=== PATIENT | female | born 1950 | race Caucasian/White ===

== ENCOUNTER 2020-01-30 15:32 | Inpatient (IN) ==
[2020-01-30] MEDS ORDERED: Ondansetron 4 MG/2 ML VIAL IVP PRN (19:32)
[2020-01-30] MEDS ORDERED: Naloxone 0.4 MG/ML INJ IVP PRN (19:32)
[2020-01-30 20:35] LABS: Alanine Aminotransferase 27 Units/L (7-52); Albumin 4.1 g/dL (3.5-5.7); Albumin/Globulin Ratio 1.6 (1.1-2.2); Alkaline Phosphatase 42 Units/L (34-104); Aspartate Amino Transferase 22 Units/L (13-39); BUN/Creatinine Ratio 20 (6-26); Bilirubin,Total 0.5 mg/dL (0.3-1.0); Blood Urea Nitrogen 16 mg/dL (8-23); Calcium 9.5 mg/dL (8.6-10.3); Carbon Dioxide 26 mEq/L (23-29); Chloride 103 mEq/L (98-107); Globulin 2.5 g/dL (2.4-3.5); Glucose 101 mg/dL (70-105); Osmolality,Calculated 287 (280-300); Potassium 4.1 mEq/L (3.5-5.1); Sodium 138 mEq/L (136-145); Total Protein 6.6 g/dL (6.4-8.9); Troponin I < 0.03 ng/mL (< 0.04); eGFR For African Americans > 60 (> 60); eGFR For Non-African Americans > 60 (> 60)
[2020-01-30] MEDS ORDERED: Perflutren Lipid Microsphere 1.3 ML in 0.9 % Sodium Chloride 8.7 ML IVP PRN (20:40)
[2020-01-30] MEDS: Gabapentin 300 MG CAPSULE PO SCH (21:53)
[2020-01-30] MEDS: Acetaminophen 325 MG TABLET PO PRN (21:54)
[2020-01-30] MEDS: Furosemide 20 MG/2 ML VIAL IVP SCH (21:55)
[2020-01-31 02:01] LABS: Basophils # 0.1 K/mcL (0.0-0.2); Eosinophils # 0.2 K/mcL (0.0-0.6); Eosinophils % 2.8 %; Hematocrit 41.7 % (35.3-44.9); Hemoglobin 13.7 g/dL (11.5-15.4); Immature Granulocytes % 0.3 % (0-4); Lymphocytes # 3.5 K/mcL (0.6-4.6); Lymphocytes % 40.6 %; Mean Corpuscular HGB Conc 32.9 g/dL (31.6-35.5); Mean Corpuscular Hemoglobin 31.9 pg (28.0-33.3); Mean Corpuscular Volume 97.2 fL (83.0-100.0); Mean Platelet Volume 10.1 fL (9.4-12.4); Monocytes # 0.6 K/mcL (0.0-1.3); Monocytes % 7.1 %; Neutrophils # 4.2 K/mcL (1.6-8.9); Platelet Count 264 K/mcL (140-400); Red Blood Count 4.29 M/mcL (3.82-4.97); Red Cell Distribution Width 13.1 % (11.5-14.5); Segmented Neutrophils % 48.2 %; White Blood Count 8.7 K/mcL (4.3-11.1)
[2020-01-31 02:04] LABS: INR 1.3; Prothrombin Time 14.8 Seconds (9.4-12.1)
[2020-01-31 02:20] LABS: BUN/Creatinine Ratio 21 (6-26); Blood Urea Nitrogen 18 mg/dL (8-23); Calcium 9.8 mg/dL (8.6-10.3); Carbon Dioxide 26 mEq/L (23-29); Chloride 103 mEq/L (98-107); Chol/HDL Ratio 3.3 (0-4.9); Cholesterol 112 mg/dL (< 200); Glucose 101 mg/dL (70-105); HDL Cholesterol 34 mg/dL (40-59); LDL Cholesterol,Calculated 53 mg/dL (< 100); Magnesium 1.9 mg/dL (1.6-2.6); Osmolality,Calculated 288 (280-300); Phosphorous 4.6 mg/dL (2.7-4.5); Potassium 4.4 mEq/L (3.5-5.1); Sodium 138 mEq/L (136-145); Triglycerides 124 mg/dL (< 150); eGFR For African Americans > 60 (> 60); eGFR For Non-African Americans > 60 (> 60)
[2020-01-31] MEDS ORDERED: FLUTICASONE PROPIONATE IH SCH (09:00)
[2020-01-31] MEDS: Gabapentin 300 MG CAPSULE PO SCH ×3 (09:35→21:16)
[2020-01-31] MEDS: Furosemide 20 MG/2 ML VIAL IVP SCH (09:36)
[2020-01-31] MEDS ORDERED: Perflutren Lipid Microsphere 1.3 ML in 0.9 % Sodium Chloride 8.7 ML IVP PRN (10:03)
[2020-01-31] MEDS: Nicotine 14 MG PATCH.TD24 TD SCH (10:42)
[2020-01-31] MEDS: Aspirin Enteric Coated 81 MG Tablet PO SCH (10:42)
[2020-01-31] MEDS: Metoprolol XL (24 HR) Succ 25 MG TAB.ER.24H PO SCH ×2 (13:28→21:16)
[2020-01-31] MEDS ORDERED: Heparin 1,000 UNITS/500 mL 500 ML ONE (13:30)
[2020-01-31] MEDS ORDERED: ISOVUE-370 200 ML INFUS..BTL ONE (13:30)
[2020-01-31] MEDS ORDERED: 0.9 % Sodium Chloride 2,000 ML ONE (13:30)
[2020-01-31] MEDS ORDERED: Nitroglycerin 1,000 MCG/10 ML VIAL IV ONE (13:30)
[2020-01-31] MEDS ORDERED: *HR* Heparin 10,000 UNIT/10 ML VIAL ONE (13:30)
[2020-01-31] MEDS ORDERED: *HR* Midazolam HCl 2 MG/2 ML VIAL ONE (14:06)
[2020-01-31] MEDS ORDERED: *HR* FentaNYL (PF) 100 MCG/2 ML VIAL ONE (14:06)
[2020-01-31] MEDS: Budesonide/Formoterol 80/4.5 1 PUFF INH IH SCH ×2 (15:49→20:22)
[2020-01-31] MEDS: Apixaban 5 MG TABLET PO SCH (21:16)
[2020-01-31] MEDS ORDERED: *HR* Metoprolol 5 MG/5 ML VIAL IVP ONE (22:51)
[2020-02-01] MEDS: Budesonide/Formoterol 80/4.5 1 PUFF INH IH SCH ×2 (07:57→20:23)
[2020-02-01] MEDS: Nicotine 14 MG PATCH.TD24 TD SCH (08:32)
[2020-02-01] MEDS: Metoprolol XL (24 HR) Succ 25 MG TAB.ER.24H PO SCH ×2 (08:33→22:38)
[2020-02-01] MEDS: Apixaban 5 MG TABLET PO SCH ×2 (08:33→20:19)
[2020-02-01] MEDS: Furosemide 20 MG TABLET PO SCH (08:33)
[2020-02-01] MEDS: Gabapentin 300 MG CAPSULE PO SCH ×3 (08:33→22:11)
[2020-02-01] MEDS: Aspirin Enteric Coated 81 MG Tablet PO SCH (08:33)
[2020-02-01] MEDS: Levalbuterol 1 PUFF INHALER IH PRN ×2 (11:52→20:21)
[2020-02-01] MEDS ORDERED: lisinopriL 5 MG TABLET PO SCH (12:15)
[2020-02-01] MEDS ORDERED: Spironolactone 25 MG TABLET PO SCH (12:15)
[2020-02-01] MEDS: Acetaminophen 325 MG TABLET PO PRN (22:46)
[2020-02-02 04:21] LABS: Hematocrit 41.7 % (35.3-44.9); Hemoglobin 13.5 g/dL (11.5-15.4); Mean Corpuscular HGB Conc 32.4 g/dL (31.6-35.5); Mean Corpuscular Hemoglobin 31.5 pg (28.0-33.3); Mean Corpuscular Volume 97.4 fL (83.0-100.0); Mean Platelet Volume 9.8 fL (9.4-12.4); Platelet Count 283 K/mcL (140-400); Red Blood Count 4.28 M/mcL (3.82-4.97); Red Cell Distribution Width 13.2 % (11.5-14.5); White Blood Count 9.1 K/mcL (4.3-11.1)
[2020-02-02 04:45] LABS: BUN/Creatinine Ratio 23 (6-26); Blood Urea Nitrogen 19 mg/dL (8-23); Calcium 9.2 mg/dL (8.6-10.3); Carbon Dioxide 26 mEq/L (23-29); Chloride 103 mEq/L (98-107); Glucose 104 mg/dL (70-105); Osmolality,Calculated 289 (280-300); Potassium 4.2 mEq/L (3.5-5.1); Sodium 138 mEq/L (136-145); eGFR For African Americans > 60 (> 60); eGFR For Non-African Americans > 60 (> 60)
[2020-02-02] MEDS ORDERED: Albumin 25% 25gram/100mL 25 GM/100 ML IV.SOLN IVPB ONE (05:24)
[2020-02-02] MEDS: Budesonide/Formoterol 80/4.5 1 PUFF INH IH SCH ×2 (07:35→22:30)
[2020-02-02] MEDS: Nicotine 14 MG PATCH.TD24 TD SCH (08:09)
[2020-02-02] MEDS: Aspirin Enteric Coated 81 MG Tablet PO SCH (08:10)
[2020-02-02] MEDS: Gabapentin 300 MG CAPSULE PO SCH ×3 (08:10→20:47)
[2020-02-02] MEDS: Apixaban 5 MG TABLET PO SCH ×2 (08:10→20:46)
[2020-02-02] MEDS: Metoprolol XL (24 HR) Succ 25 MG TAB.ER.24H PO SCH ×2 (09:12→20:46)
[2020-02-02] MEDS: Acetaminophen 325 MG TABLET PO PRN (22:17)
[2020-02-02] MEDS ORDERED: DilTIAZem 50 MG/50 ML IV.SOLN IVC SCH (23:15)
[2020-02-03] MEDS: Budesonide/Formoterol 80/4.5 1 PUFF INH IH SCH ×2 (07:31→21:45)
[2020-02-03 08:48] LABS: INR 1.3; Prothrombin Time 15.2 Seconds (9.4-12.1)
[2020-02-03] MEDS: Nicotine 14 MG PATCH.TD24 TD SCH (08:49)
[2020-02-03 08:50] LABS: Activated Partial Thrombo Time 33.4 Seconds (26.0-36.0)
[2020-02-03] MEDS: Aspirin Enteric Coated 81 MG Tablet PO SCH (08:50)
[2020-02-03] MEDS: Metoprolol XL (24 HR) Succ 25 MG TAB.ER.24H PO SCH ×2 (08:50→20:24)
[2020-02-03 08:51] LABS: Hematocrit 42.1 % (35.3-44.9); Hemoglobin 13.7 g/dL (11.5-15.4); Mean Corpuscular HGB Conc 32.5 g/dL (31.6-35.5); Mean Corpuscular Hemoglobin 32.1 pg (28.0-33.3); Mean Corpuscular Volume 98.6 fL (83.0-100.0); Mean Platelet Volume 10.1 fL (9.4-12.4); Platelet Count 286 K/mcL (140-400); Red Blood Count 4.27 M/mcL (3.82-4.97); Red Cell Distribution Width 13.3 % (11.5-14.5); White Blood Count 7.3 K/mcL (4.3-11.1)
[2020-02-03] MEDS: Gabapentin 300 MG CAPSULE PO SCH ×3 (08:51→20:24)
[2020-02-03] MEDS: Apixaban 5 MG TABLET PO SCH ×2 (08:52→20:24)
[2020-02-03 08:58] LABS: BUN/Creatinine Ratio 21 (6-26); Blood Urea Nitrogen 19 mg/dL (8-23); Calcium 9.5 mg/dL (8.6-10.3); Carbon Dioxide 29 mEq/L (23-29); Chloride 103 mEq/L (98-107); Glucose 92 mg/dL (70-105); Magnesium 1.8 mg/dL (1.6-2.6); Osmolality,Calculated 290 (280-300); Phosphorous 4.2 mg/dL (2.7-4.5); Potassium 3.9 mEq/L (3.5-5.1); Sodium 139 mEq/L (136-145); eGFR For African Americans > 60 (> 60); eGFR For Non-African Americans > 60 (> 60)
[2020-02-03] MEDS ORDERED: *HR* Digoxin 0.5 MG/2 ML AMPUL IVP ONE (13:56)
[2020-02-03] MEDS ORDERED: Magnesium Sulfate 1 GM/102 ML PIGGYBACK IVPB ONE (14:04)
[2020-02-03] MEDS: Levalbuterol 1 PUFF INHALER IH PRN (21:32)
[2020-02-04 07:13] LABS: Basophils # 0.1 K/mcL (0.0-0.2); Basophils % 1.1 %; Eosinophils # 0.3 K/mcL (0.0-0.6); Eosinophils % 3.7 %; Hematocrit 44.1 % (35.3-44.9); Hemoglobin 14.5 g/dL (11.5-15.4); Immature Granulocytes % 0.1 % (0-4); Lymphocytes # 3.1 K/mcL (0.6-4.6); Lymphocytes % 34.7 %; Mean Corpuscular HGB Conc 32.9 g/dL (31.6-35.5); Mean Corpuscular Hemoglobin 31.9 pg (28.0-33.3); Mean Corpuscular Volume 97.1 fL (83.0-100.0); Mean Platelet Volume 10.2 fL (9.4-12.4); Monocytes # 0.8 K/mcL (0.0-1.3); Monocytes % 9.2 %; Neutrophils # 4.6 K/mcL (1.6-8.9); Platelet Count 292 K/mcL (140-400); Red Blood Count 4.54 M/mcL (3.82-4.97); Red Cell Distribution Width 13.2 % (11.5-14.5); Segmented Neutrophils % 51.2 %; White Blood Count 8.9 K/mcL (4.3-11.1)
[2020-02-04] MEDS: Budesonide/Formoterol 80/4.5 1 PUFF INH IH SCH ×2 (07:20→19:51)
[2020-02-04 07:37] LABS: BUN/Creatinine Ratio 20 (6-26); Blood Urea Nitrogen 17 mg/dL (8-23); Carbon Dioxide 27 mEq/L (23-29); Chloride 103 mEq/L (98-107); Glucose 97 mg/dL (70-105); Osmolality,Calculated 289 (280-300); Potassium 3.9 mEq/L (3.5-5.1); Sodium 139 mEq/L (136-145); eGFR For African Americans > 60 (> 60); eGFR For Non-African Americans > 60 (> 60)
[2020-02-04] MEDS: Furosemide 20 MG TABLET PO SCH (09:47)
[2020-02-04] MEDS: *HR* Digoxin 0.125 MG TABLET PO SCH (09:47)
[2020-02-04] MEDS: Apixaban 5 MG TABLET PO SCH ×2 (09:47→20:04)
[2020-02-04] MEDS: Gabapentin 300 MG CAPSULE PO SCH ×3 (09:48→20:04)
[2020-02-04] MEDS: Metoprolol XL (24 HR) Succ 25 MG TAB.ER.24H PO SCH ×2 (09:48→20:06)
[2020-02-04] MEDS: Aspirin Enteric Coated 81 MG Tablet PO SCH (09:48)
[2020-02-04] MEDS: Nicotine 14 MG PATCH.TD24 TD SCH (09:48)
[2020-02-04] MEDS ORDERED: Metoprolol XL (24 HR) Succ 25 MG TAB.ER.24H PO ONE (10:30)
[2020-02-04] MEDS: Acetaminophen 325 MG TABLET PO PRN (14:50)
[2020-02-04] MEDS: *HR* Digoxin 0.5 MG/2 ML AMPUL IVP SCH (17:13)
[2020-02-05] MEDS: *HR* Digoxin 0.5 MG/2 ML AMPUL IVP SCH (00:25)
[2020-02-05 07:00] VITALS: BP 117/79
[2020-02-05] MEDS: Levalbuterol 1 PUFF INHALER IH PRN (07:45)
[2020-02-05] MEDS: Budesonide/Formoterol 80/4.5 1 PUFF INH IH SCH (07:46)
[2020-02-05] MEDS: *HR* Digoxin 0.125 MG TABLET PO SCH (10:08)
[2020-02-05] MEDS: Aspirin Enteric Coated 81 MG Tablet PO SCH (10:08)
[2020-02-05] MEDS: Metoprolol XL (24 HR) Succ 25 MG TAB.ER.24H PO SCH (10:08)
[2020-02-05] MEDS: Gabapentin 300 MG CAPSULE PO SCH (10:08)
[2020-02-05] MEDS: Furosemide 20 MG TABLET PO SCH (10:08)
[2020-02-05] MEDS: Apixaban 5 MG TABLET PO SCH (10:08)
[2020-02-05] MEDS: Nicotine 14 MG PATCH.TD24 TD SCH (10:09)
== END 2020-02-05 14:15 | disposition home or self-care (01) | DRG 286 ==
LOC: 3BNU → SUATTDRO 18:13
PROVIDERS: ADMIT Student in an Organized Health Care Education/Training Program; ATTEND Nurse Practitioner Adult Health

== ENCOUNTER 2020-11-22 20:44 | Observation (INO) ==
[2020-11-22] MEDS ORDERED: Isovue-370 500 ML BOTTLE IVP ONE (20:57)
[2020-11-22 21:22] LABS: Basophils # 0.1 K/mcL (0.0-0.2); Basophils % 1.1 %; Eosinophils # 0.3 K/mcL (0.0-0.6); Eosinophils % 2.5 %; Hematocrit 46.7 % (35.3-44.9); Hemoglobin 15.5 g/dL (11.5-15.4); Immature Granulocytes % 0.3 % (0-4); Lymphocytes # 3.3 K/mcL (0.6-4.6); Lymphocytes % 32.7 %; Mean Corpuscular HGB Conc 33.2 g/dL (31.6-35.5); Mean Corpuscular Hemoglobin 31.6 pg (28.0-33.3); Mean Corpuscular Volume 95.3 fL (83.0-100.0); Mean Platelet Volume 9.4 fL (9.4-12.4); Monocytes # 0.7 K/mcL (0.0-1.3); Monocytes % 6.5 %; Neutrophils # 5.7 K/mcL (1.6-8.9); Platelet Count 307 K/mcL (140-400); Red Cell Distribution Width 13.6 % (11.5-14.5); Segmented Neutrophils % 56.9 %
[2020-11-22 22:08] LABS: BUN/Creatinine Ratio 40 (6-26); Blood Urea Nitrogen 27 mg/dL (8-23); Calcium 9.8 mg/dL (8.6-10.3); Carbon Dioxide 26 mEq/L (23-29); Chloride 101 mEq/L (98-107); Glucose 86 mg/dL (70-105); Osmolality,Calculated 284 (280-300); Potassium 4.1 mEq/L (3.5-5.1); Sodium 135 mEq/L (136-145); eGFR For African Americans > 60 (> 60); eGFR For Non-African Americans > 60 (> 60)
[2020-11-23] MEDS ORDERED: Perflutren Lipid Microsphere 1.3 ML in 0.9 % Sodium Chloride 8.7 ML IVP PRN (01:07)
[2020-11-23] MEDS ORDERED: Nitroglycerin 0.4 MG TAB.SUBL SL PRN (01:09)
[2020-11-23] MEDS ORDERED: Naloxone 0.4 MG/ML INJ IVP PRN (01:10)
[2020-11-23] MEDS ORDERED: Acetaminophen 325 MG TABLET PO PRN (01:10)
[2020-11-23 01:19] LABS: Bilirubin,Urine Negative (Negative); Blood,Urine Moderate (Negative); Clarity,Urine Clear (Clear); Color,Urine Colorless (Yellow); Glucose,Urine (UA) Normal (Normal); Ketones,Urine Negative (Negative); Leukocyte Esterase,Urine Negative (Negative); Mucus,Urine Few per lpf (None-Few); Nitrite,Urine Negative (Negative); Protein,Urine Trace mg/dL (Neg-Trace); Specific Gravity,Urine > 1.030 (1.010-1.025); Squamous Epithelial Cell,Urine Few per hpf (None-Few); Urobilinogen,Urine Normal (Normal); WBC,Urine 0-3 per hpf (0-3)
[2020-11-23 01:39] LABS: Amphetamine Screen,Urine Negative ng/mL (Cutoff=1000); Barbiturate Screen,Urine Positive ng/mL (Cutoff=200); Benzodiazepines Screen,Urine Negative ng/mL (Cutoff=200); Cannabinoid Screen,Urine Positive ng/mL (Cutoff = 50); Cocaine Screen,Urine Negative ng/mL (Cutoff= 300); Opiate Screen,Urine Negative ng/mL (Cutoff=300); Phencyclidine Screen,Urine Negative ng/mL (Cutoff=25)
[2020-11-23] MEDS ORDERED: *HR* Metoprolol 5 MG/5 ML VIAL IVP ONE ×2 (02:08→11:01)
[2020-11-23] MEDS ORDERED: *HR* Heparin 5,000 UNIT/ML VIAL IVP ONE (02:11)
[2020-11-23] MEDS ORDERED: *HR* Heparin 5,000 UNIT/ML VIAL IVP PRN ×2 (02:11)
[2020-11-23] MEDS ORDERED: Heparin 25,000UNIT/250ML 1/2NS 25,000 UNIT/250 ML IV.SOLN IVC SCH (02:15)
[2020-11-23 02:44] LABS: Hematocrit 48.5 % (35.3-44.9); Mean Corpuscular Hemoglobin 31.8 pg (28.0-33.3); Mean Corpuscular Volume 96.4 fL (83.0-100.0); Mean Platelet Volume 9.5 fL (9.4-12.4); Platelet Count 318 K/mcL (140-400); Red Blood Count 5.03 M/mcL (3.82-4.97); Red Cell Distribution Width 13.8 % (11.5-14.5); White Blood Count 10.7 K/mcL (4.3-11.1)
[2020-11-23 02:57] LABS: INR 1.3; Prothrombin Time 14.6 Seconds (9.4-12.1)
[2020-11-23 03:00] LABS: Activated Partial Thrombo Time 29.1 Seconds (26.0-36.0)
[2020-11-23 03:07] LABS: BUN/Creatinine Ratio 39 (6-26); Blood Urea Nitrogen 26 mg/dL (8-23); Calcium 9.7 mg/dL (8.6-10.3); Carbon Dioxide 24 mEq/L (23-29); Chloride 101 mEq/L (98-107); Chol/HDL Ratio 4.3 (0-4.9); Cholesterol 136 mg/dL (< 200); Glucose 97 mg/dL (70-105); HDL Cholesterol 32 mg/dL (40-59); LDL Cholesterol,Calculated 78 mg/dL (< 100); Magnesium 1.9 mg/dL (1.6-2.6); Osmolality,Calculated 283 (280-300); Potassium 4.1 mEq/L (3.5-5.1); Sodium 134 mEq/L (136-145); Triglycerides 131 mg/dL (< 150); eGFR For African Americans > 60 (> 60); eGFR For Non-African Americans > 60 (> 60)
[2020-11-23 03:11] LABS: Estimated Average Glucose 126 mg/dl
[2020-11-23] MEDS ORDERED: Levalbuterol Neb 1.25 MG/3 ML IH SCH (04:00)
[2020-11-23] MEDS ORDERED: Levalbuterol 1 PUFF INHALER IH PRN (04:07)
[2020-11-23] MEDS: *HR* Digoxin 0.125 MG TABLET PO SCH (08:57)
[2020-11-23] MEDS: Primidone 50 MG TABLET PO SCH (08:57)
[2020-11-23] MEDS: Aspirin Enteric Coated 81 MG Tablet PO SCH (08:57)
[2020-11-23] MEDS: Magnesium Oxide 400 MG TABLET PO SCH ×2 (08:57→20:33)
[2020-11-23] MEDS: Gabapentin 300 MG CAPSULE PO SCH ×3 (08:57→20:33)
[2020-11-23] MEDS ORDERED: Apixaban 5 MG TABLET PO SCH (09:00)
[2020-11-23 11:09] LABS: Troponin I < 0.03 ng/mL (< 0.04)
[2020-11-23] MEDS: Nicotine 7 MG PATCH.TD24 TD SCH (14:55)
[2020-11-23] MEDS: Apixaban 5 MG TABLET PO SCH (20:33)
[2020-11-23] MEDS ORDERED: Acetaminophen IV 1,000 MG/100 ML BAG IVPB ONE (23:54)
[2020-11-24 06:00] LABS: Hematocrit 50.3 % (35.3-44.9); Mean Corpuscular HGB Conc 33.8 g/dL (31.6-35.5); Mean Corpuscular Hemoglobin 32.3 pg (28.0-33.3); Mean Corpuscular Volume 95.4 fL (83.0-100.0); Mean Platelet Volume 9.6 fL (9.4-12.4); Platelet Count 322 K/mcL (140-400); Red Blood Count 5.27 M/mcL (3.82-4.97); Red Cell Distribution Width 13.4 % (11.5-14.5); White Blood Count 11.1 K/mcL (4.3-11.1)
[2020-11-24 06:22] LABS: BUN/Creatinine Ratio 26 (6-26); Blood Urea Nitrogen 23 mg/dL (8-23); Calcium 10.5 mg/dL (8.6-10.3); Carbon Dioxide 29 mEq/L (23-29); Chloride 101 mEq/L (98-107); Glucose 99 mg/dL (70-105); Osmolality,Calculated 288 (280-300); Potassium 4.8 mEq/L (3.5-5.1); Sodium 137 mEq/L (136-145); eGFR For African Americans > 60 (> 60); eGFR For Non-African Americans > 60 (> 60)
[2020-11-24] MEDS: Nicotine 7 MG PATCH.TD24 TD SCH (08:02)
[2020-11-24] MEDS: Aspirin Enteric Coated 81 MG Tablet PO SCH (08:03)
[2020-11-24] MEDS: Primidone 50 MG TABLET PO SCH (08:03)
[2020-11-24] MEDS: Gabapentin 300 MG CAPSULE PO SCH (08:03)
[2020-11-24] MEDS: *HR* Digoxin 0.125 MG TABLET PO SCH (08:04)
[2020-11-24] MEDS: Apixaban 5 MG TABLET PO SCH (08:04)
[2020-11-24] MEDS: Magnesium Oxide 400 MG TABLET PO SCH (08:04)
[2020-11-24 11:45] VITALS: BP 110/85
== END 2020-11-24 14:55 | disposition home or self-care (01) ==
LOC: 3BNU 20:44 → EMEROOARM 20:44 → SUATTDRO 11-23 00:20 → 3BNU 11-23 01:09
PROVIDERS: ADMIT Student in an Organized Health Care Education/Training Program; ATTEND Nurse Practitioner